=== PATIENT | female | born 1965 | race Caucasian/White ===

== ENCOUNTER → 2018-12-13 | Outpatient (CLI) | payer BC, MEDICARE, SELFPAY ==
--- NOTE | 2018-12-13 15:46 | VDLE_ITS ---
Reason For Study: swelling RIGHT LEFT GSV is normal. GSV is normal. CFV is compressible, spontaneous, phasic, CFV is compressible, spontaneous, phasic, competent and demonstrates normal competent, and demonstrates normal augmentation. augmentation. FV is compressible, spontaneous, phasic, FV is compressible, spontaneous, phasic, competent and demonstrates normal competent and demonstrates normal augmentation. augmentation. POP V is compressible, spontaneous, phasic, POP V is compressible, spontaneous, phasic, competent and demonstrates normal competent and demonstrates normal augmentation. augmentation. T/P Trunk is compressible. T/P Trunk is compressible. PTV is compressible. PTV is compressible. RT PerV is compressible. LT PerV is compressible. Procedure Hypoechoic area behind the knee measuring Exam performed in department. 3.49 x 1.59 cm. Area is nonvascular. The exam was diagnostic. A preliminary report was called and/or faxed to Dr. Escamilla. Interpretation Summary Deep veins of the lower extremities are bilaterally patent and compressible segmentally. There is no evidence of deep vein thrombosis on either side. Valvular competence appears intact within the proximal deep venous systems bilaterally. The great saphenous veins appear bilaterally patent and compressible segmentally. A non-vascular, hypoechoic structure is noted in the left popliteal space, measuring 3.49 cm x 1.59 cm. This probably represents a popliteal cyst. Clinical correlation is advised. Ordering Physician: Theresa Escamilla Performed By: Crisótbal Harding RVT
== END | disposition home or self-care (01) ==
LOC: CVS 15:43
PROVIDERS: Family Provider Internal Medicine; PCP Internal Medicine; Referring Provider Internal Medicine; Visit Provider Internal Medicine
DX: M79.89 Other specified soft tissue disorders (principal); M79.661 Pain in right lower leg; M79.662 Pain in left lower leg
CPT/HCPCS: 93970

== ENCOUNTER → 2023-04-21 | Outpatient (CLI) | payer MEDICARE, SELFPAY ==
[2023-04-21 15:03] LABS: BNP,B-Type NATRIURETIC PEPTIDE 292.6 pg/mL (0-100)
== END | disposition home or self-care (01) ==
PROVIDERS: PCP Internal Medicine; Referring Provider Pharmacist Pharmacist Clinician (PhC)/ Clinical Pharmacy Specialist; Visit Provider Pharmacist Pharmacist Clinician (PhC)/ Clinical Pharmacy Specialist
DX: R61 Generalized hyperhidrosis (principal); I50.42 Chronic combined systolic (congestive) and diastolic (congestive) heart failure; R42 Dizziness and giddiness; R53.1 Weakness; N28.9 Disorder of kidney and ureter, unspecified; E83.51 Hypocalcemia; R60.0 Localized edema
CPT/HCPCS: 83880